=== PATIENT | male | born 2000 | race Hispanic/Latino ===

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

== ENCOUNTER 2024-03-22 06:16 | Emergency (ER) | payer OTHER ==
[~2024-03-22] VITALS: Ht 182.9 cm; Wt 147.4 kg
[~2024-03-22 06:16] MED LIST: CEFDINIR300 MG PO
[2024-03-22 06:19] VITALS: PULSE 86; RESP 20; TEMP 98.4; O2SAT 99
[2024-03-22] MEDS ORDERED: AUGMENTIN 500-1 EACH PO (06:21)
== END 2024-03-22 06:32 | disposition home or self-care (01) ==
LOC: ER 06:19
DX: H92.02 Otalgia, left ear (principal)
CPT/HCPCS: 99283